=== PATIENT | female | born 1960 | race American Indian/Alaskan Native ===

== ENCOUNTER 2017-02-04 09:14 | Day surgery (SDC) | payer BC ==
[~2017-02-04 09:14] MED LIST: ANCEF/STERILE WATER 2 GM/20 ML IV NR
[2017-02-04] MEDS ORDERED: ZOFRAN IV PRN (09:40)
[2017-02-04] MEDS ORDERED: SUBLIMAZE IV PRN (09:40)
--- NOTE | 2017-02-04 09:41 | Anesthesia Day of Surgery ---
Anesthesia Day of Surgery - Day of Surgery Patient is NPO: Yes Beta Blockers: No Cardiac Clearance: No Pulmonary Clearance: No
--- NOTE | 2017-02-04 09:42 | Anesthesia Consultation ---
Anesthesia Consult and Med Hx Date of service: 02/04/17 - Airway Anesthetic Teeth Evaluation: Dentures ROM Head & Neck: Adequate Mental/Hyoid Distance: Adequate Mallampati Class: Class II Intubation Access Assessment: Probably Good - Pulmonary Exam CTA: Yes (clear blbs no wheeze) - Cardiac Exam Cardiac Exam: RRR - Pre-Operative Health Status ASA Pre-Surgery Classification: ASA3 Proposed Anesthetic Plan: General - Pulmonary Hx Smoking: No Hx Asthma: Yes (RARE INHALER USE/never hospitalized/no ER visits/no recent URI) Hx Sleep Apnea: No (NAT PRE SCREEN HIGH RISK) - Cardiovascular System Hx Hypertension: Yes (X 10 YRS- ON MEDS) - Central Nervous System Hx Back Pain: Yes (??kidney stone) - Gastrointestinal Hx Gastroesophageal Reflux Disease: Yes (only after meals/not when NPO) - Endocrine Hx Renal Disease: Yes (kidney stone) Hx Hypothyroidism: Yes (ON MEDS) - Other Systems Hx Cancer: No Hx Obesity: Yes
[2017-02-04] MEDS ORDERED: DIPRIVAN 10 MG/ML IV ONE (09:52)
[2017-02-04] MEDS ORDERED: XYLOCAINE MPF 2% ONE (09:54)
[2017-02-04] MEDS ORDERED: VERSED IV NR (10:00)
[2017-02-04] MEDS ORDERED: DECADRON ONE (10:00)
[2017-02-04] MEDS ORDERED: NACL 0.9% 1000 ML 1,000 ML IV SCH (10:00)
[2017-02-04] MEDS ORDERED: PEPCID PO NR (10:00)
[2017-02-04] MEDS ORDERED: OMNIPAQUE (300 MG) IR ONE (10:58)
[2017-02-04] MEDS ORDERED: ZOFRAN ONE (11:08)
--- NOTE | 2017-02-04 11:27 | Short Stay Summary ---
Short Stay Documentation Date of service: 02/04/17 - History H&P: obtained from office - Allergies and Medications Current Medications: Allergies No Known Allergies Allergy (Verified 02/01/17 11:36) Home Medications Medication Instructions Recorded Confirmed Last Taken Type ALBUTEROL Inhaler [Proair] 2 puff IH QID PRN 02/01/17 02/04/17 2 Months Ago History Hydrochlorothiazide [HCTZ] 25 mg PO QDAY 02/01/17 02/04/17 02/03/17 History Levothyroxine [Synthroid] 100 mcg PO QAM 02/01/17 02/01/17 02/04/17 08:10 History Lisinopril [Zestril] 20 mg PO QDAY 02/01/17 02/01/17 02/04/17 08:10 History oxyCODONE /ACETAMINOPHEN [Percocet 1 tab PO PRN PRN 02/01/17 02/01/17 Unknown History 5/325 mg] Latanoprost [Latanoprost] 1 drop OU HS 02/04/17 02/04/17 02/03/17 History Active Medications Cefazolin Sodium (Ancef/Sterile Water 2 Gm/20 Ml) 2 gm IV PREOP NR Stop: 02/04/17 23:59 Famotidine (Pepcid) 20 mg PO PREOP NR Stop: 02/04/17 23:59 Last Admin: 02/04/17 10:00 Dose: 20 mg Fentanyl (Sublimaze) 50 mcg IV Q5MIN PRN PRN Reason: Pain , Severe (7-10) Stop: 02/04/17 23:59 Hydromorphone HCl (Dilaudid) 0.25 mg IV Q5MIN PRN PRN Reason: Pain, Moderate (4-6) Stop: 02/04/17 23:59 Sodium Chloride (Nacl 0.9% 1000 Ml) 1,000 mls @ 100 mls/hr IV DIRECT JOE Stop: 02/04/17 23:59 Last Admin: 02/04/17 10:10 Dose: 100 mls/hr Midazolam HCl (Versed) 2 mg IV PREOP NR Stop: 02/04/17 23:59 Last Admin: 02/04/17 10:15 Dose: 2 mg Ondansetron HCl (Zofran) 4 mg IV ONCE PRN PRN Reason: Nausea And Vomiting Stop: 02/04/17 23:59 - Brief post op/procedure progress note Date of procedure: 02/04/17 Pre-op diagnosis: left distal ureteral stone Post-op diagnosis: other (passed stone, stricture) Procedure: cysto, rpg,ureteral dilation, left ureteroscopy, stent with external string Anesthesia: ALLY Surgeon: ELISA HOOD Estimated blood loss: none Pathology: none Condition: stable - Hospital course Hospital course: enmanuel & jennifer on chart - Disposition Condition at discharge: Stable Short Stay Discharge Plan Follow up with: MATTHIAS GUERRERO MD [Primary Care Provider] - 7 Days
[2017-02-04] MEDS: DILAUDID IV PRN ×2 (11:41→11:46)
[2017-02-04 12:24] VITALS: BP 143/69
[2017-02-04] MEDS ORDERED: NORCO 5/325 PO PRN (12:37)
--- NOTE | 2017-02-04 12:53 | Operative Report ---
PREOPERATIVE DIAGNOSIS: Left distal stone. POSTOPERATIVE DIAGNOSES: Left distal stone, passed the stone, left distal ureteral stricture. PROCEDURE: Cystoscopy, bilateral retrograde pyelograms, dilation of left ureter, left flexible ureterorenoscopy, double-J stent (6 Turkmen 24 cm with an external string). SURGEON: Jensen Alvarado MD ANESTHESIA: General. ESTIMATED BLOOD LOSS: Minimal. FLUIDS: Crystalloid. COMPLICATIONS: No complications. INDICATIONS: This patient is a 56-year-old female actually seen a year ago in the office for stones who lost to followup. CT at that time revealed 2 mm bilateral stones. Now, she presents with worsening pain. She does do lifting at work. KUB in the office showed distal calcification. Based on these findings, we agreed to proceed with surgical intervention. DESCRIPTION OF PROCEDURE: The patient was taken to the operative suite, placed in a supine position. After adequate general anesthesia, she was placed in a dorsal lithotomy position, prepped and draped in a sterile fashion. She was noted to have a moderate cystocele. Pancystourethroscopy was performed with a 22 Turkmen Storz cystoscope, no acute bladder pathology. No tumors or stones were noted. Mild amount of erythema around the left ureteral orifice. The cystocele was reduced with in the vaginal vault. Bilateral retrograde pyelograms were obtained with an 8 Turkmen Ulises catheter and 8 mL of contrast. No filling defects or obstruction on the right. Left side, still questionable stone in the distal ureter. Two 0.035 guidewires were placed in the right and left collecting system under fluoroscopic guidance. Attempts at ureteroscopy was unsuccessful due to stenosis. A 20-Turkmen access sheath was inserted and gentle dilation was performed. Ureterorenoscopy was performed. No stone could be appreciated. The stenosis was now dilated. She may have passed a stone. A 6-Turkmen 24 cm double-J stent was left indwelling. Bladder was drained. She was extubated and taken to recovery room. She will go home on Cipro and Cisne and follow up in the office. Primary care is Dr. Win Carmona, medical technologist microbiology is Dr. Larry Wiseman. JOB# [id number] [facility]
--- NOTE | 2017-02-04 13:28 | Post Anesthesia Evaluation ---
- Post Anesthesia Evaluation Patient Participated: Yes Airway Patent: Yes Stable Respiratory Function: Yes Temp > 96.8F: Yes Pain Manageable: Yes Adequeate Hydration: Yes Anesthesia Complications: No Block Receding Appropriately: Not Applicable
--- NOTE | 2017-02-05 02:50 | Admit Criteria Form ---
Admission Criteria Documentation: AMBULATORY SURGERY EXCEPTION CRITERIA Ambulatory Surgery Exception Criteria ( Place 'X' for any and all applicable criteria): Surgery or procedure performed on ambulatory basis may require inpatient stay for[A] ANY ONE of the following(1)(2)(3)(4)(5)(6)(7)(8)(9): [X] I. A preoperative situation, condition, or finding that warrants inpatient stay as indicated by ANY ONE of the following: [] a) Inpatient care needed because of severity of a disease or condition rather than the surgery (eg, severe cardiac or respiratory disease, severe infection) (15) (16 ) (17) (18) [] b) Emergent procedure (eg, angioplasty for acute ischemia)(19) [] c) Complex surgical approach or situation as indicated by ANY ONE of the following(3): [] i) Open approach needed instead of usual endoscopic, transcatheter, or other less invasive procedure [] ii) Difficult approach because of previous operation [] iii) Airway monitoring required after open neck procedures(20)(21) [] iv) Large mass requiring unusually extensive dissection [] v) Additional complicating feature requiring inpatient care (eg, drain management)(22(23): [X] d) Major surgery in a pt with high anesthetic risk as indicated by ANY ONE of the following (2)(3)(5)(7)(8): [X] i) ASA risk class III or higher (severe systemic disease impairing function) [D] [] ii) Advanced age (eg, older than 85 years)(14)(24) [] iii) Symptomatic heart failure(25) [] iv) Symptomatic asthma or COPD(8)(21) [] v) Morbid obesity with hemodynamic or respiratory problems(20)( 21)(26)(27) [] vi) Obstructive sleep apnea(20)(21) [] vii) Former premature infants who are younger than 60 weeks [] viii) High risk for severe postoperative abnormalities (eg, severe postoperative hypocalcemia after parathyroidectomy for severe hyperparathyroidism)(27)( 28) [] ix) Unstable angina(25) [] e) Drug-related risk requiring inpatient stay as indicated by ANY ONE of the following(5)(10)(14)(32)(33) [] i) Procedure requires discontinuing drugs or other therapy (eg , antiarrhythmic medication, antiseizure medication), which necessitates inpatient observation or treatment.(18)(31) [] ii) Major surgery and high risk drug use as indicated by ANY ONE of the following: [] 1) Active abuse of cocaine or similar drug [] 2) Monoamine oxidase inhibitor use [] 3) Other drug identified as posing risk [] f) Inadequate outpatient care situation as indicated by ANY ONE of the following(5)(10)(14)(32)(33) [] i) Patient lives remote from medical facility and procedure has urgent complication potential, and temporary nearby residence cannot be arranged [] ii) Patient will have postprocedure incapacitation and inadequate assistance at home, or alternative level of care cannot be arranged. [] iii) Patient will have long general anesthesia or procedure side effect resolution time, and competent person to stay with patient on first postoperative night at home or alternative level of care cannot be arranged. []iv) Other inadequate outpatient situation that cannot be handled by other means [] II. A perioperative event, condition, or finding that warrants inpatient stay as indicated by ANY ONE of the following (1)(2)(3): [] a) Inadequate physiologic recovery: cardiovascular, respiratory, or hemodynamic status not normal or near preoperative baseline(18) [] b) Hemodynamic instability [] c) Patient not alert with near normal or baseline mental status [] d) Temperature not normal or as expected and not appropriate for outpatient treatment of condition [] e) Ambulatory or appropriate activity level status not yet achieved post procedure [E](34)(35)(36) [] f) Operative site not appropriate (eg, unexpected or excessive drainage or bleeding) [] g) Postoperative effects not resolved or adequately managed (eg, significant pain or vomiting not appropriate for outpatient or next level of care)(10)(12) [] h) Complicating features requiring inpatient care as indicated by ANY ONE of the following(37): [] i) Severe complications of procedure (eg, bowel injury, airway compromise, vascular injury,severe hemorrhage) [] ii) Extensive (eg, dissection far beyond usual scope of procedure ) or prolonged (eg, 120 minutes beyond usual) surgery needed requiring inpatient postoperative care [] iii) Conversion to an open or complex procedure that requires inpatient care (eg, open vs laparoscopic cholecystectomy, abdominal vs vaginal hysterectomy)(38) [] iv) Comorbid condition or test result identified during or post procedure that requires inpatient care (7) [] v) Malignant hyperthermia(30) [] vi) Other complicating feature requiring inpatient care(22)(23) Inpatient stay may be needed until ALL of the following are present (1)(2)(3)(4) (5)(6)(10)(14)(33)(40): []a) Physiologic recovery: cardiovascular, respiratory, and hemodynamic status normal or near preoperative baseline []b) Hemodynamic stability []c) Patient alert, with near normal or baseline mental status []d) Temperature appropriate: patient afebrile or temperature appropriate for outpt treatment of condition []e) Activity level appropriate: ambulatory or appropriate activity level post procedure []f) Operative site appropriate as indicated by ALL of the following: []i) Site dry or with expected drainage []ii) Any blood noted is as expected for procedure. []g) Postoperative effects resolved or managed as indicated by ALL of the following: []i) Pain management appropriate for outpatient (or next level of) care(10) []ii) Minimal nausea and vomiting: if present, successfully treated with oral medication(12) []iii) Headache, dizziness, or drowsiness (if present) are mild. []h) Voiding status acceptable as indicated by ANY ONE of the following: []i) Voiding spontaneously []ii) No voiding but instructions given for follow-up in 6 to 8 hours []iii) Urinary catheter in place, and instructions given for follow-up []i) Complicating features requiring inpatient care manageable at a lower level of care(37) []j) Comorbid conditions manageable at a lower level of care(37) The original [employer] content created by [employer] has been revised. The portions of the content which have been revised are identified through the use of italic text or in bold, and [facility] [employer] has neither reviewed nor approved the modified material. All other unmodified content is copyright [employer]. Please see references footnoted in the original [employer] edition 2016 Admission Criteria Met: Yes
--- NOTE | 2017-02-05 09:12 | Fluoroscopy Report ---
RETROGRADE PYELOGRAM: History: Left ureteral stone. There is adequate filling of the ureters and intrarenal collecting systems with no filling defects or anatomic abnormalities identified. Left ureteroscopy was also performed. A left ureteral stent was placed which is in good position on the final image. Please correlate with the procedural report by Dr. Alvarado.
== END 2017-02-04 12:50 | disposition home or self-care (01) ==
LOC: OR 09:14
PROVIDERS: ATTEND Urology
DX: N20.1 Calculus of ureter (principal); N13.5 Crossing vessel and stricture of ureter without hydronephrosis; N81.10 Cystocele, unspecified; I10 Essential (primary) hypertension; J45.909 Unspecified asthma, uncomplicated; K21.9 Gastro-esophageal reflux disease without esophagitis; E03.9 Hypothyroidism, unspecified; E66.9 Obesity, unspecified; Z68.38 Body mass index [BMI] 38.0-38.9, adult; Z90.49 Acquired absence of other specified parts of digestive tract; Z90.710 Acquired absence of both cervix and uterus; Z98.890 Other specified postprocedural states; Z79.899 Other long term (current) drug therapy; Z82.49 Family history of ischemic heart disease and other diseases of the circulatory system; Z80.3 Family history of malignant neoplasm of breast; Z82.3 Family history of stroke; Z83.3 Family history of diabetes mellitus
CPT/HCPCS: 36415; 52332; 52341; 74420; 84132; C1769; C2617; J0690; J1100; J1170; J2250; J2405; J2704; J3010; J7030; Q9967

== ENCOUNTER 2020-10-26 09:38 | Outpatient (CLI) | payer BC | END 2020-10-26 09:39 | disposition home or self-care (01) | LOC: SPVWC 09:38 | PROVIDERS: ATTEND Surgery | DX: Z12.31 Encounter for screening mammogram for malignant neoplasm of breast (principal) | CPT/HCPCS: 77067 ==

== ENCOUNTER 2020-11-08 09:47 | Outpatient (CLI) | payer BC ==
--- NOTE | 2020-11-08 10:27 | Mammography Report ---
DIGITAL DIAGNOSTIC MAMMOGRAM WITH CAD , 11/08/2020 CLINICAL INFORMATION / INDICATION: ABNORMAL MAMMO TECHNIQUE: Digital right mammographic imaging was performed. Magnification views were obtained. This examination was interpreted with the benefit of Computer-aided Detection analysis. COMPARISON: 10/26/2020 FINDINGS: Breast Density: The breasts are heterogeneously dense, which may obscure small masses. There are grouped calcifications in the right breast at 9:00, middle depth, spanning a distance of 1 5 mm. Calcifications are heterogeneous in appearance, and will require further evaluation with biopsy . Calcifications are amenable to stereotactic guided biopsy if clinically desired. IMPRESSION: Heterogeneous grouped calcifications right breast, 9:00. Recommend stereotactic biopsy. Follow up recommendation: Biopsy BI-RADS Category 4: Suspicious for Malignancy. A "normal" or negative report should not discourage follow up or biopsy of a clinically significant f inding. A written summary of these findings will be mailed to the patient. The patient will be entered into a mammography reporting system which will generate a reminder letter for the patient's next appointmen t at the appropriate interval. According to the [employer], yearly mammograms are recommended starting at age 40 and continuing as long as a woman is in good health. Breast MRI is recommended for women with an alexandra roximately 20-25% or greater lifetime risk of breast cancer, including women with a strong family his tory of breast or ovarian cancer and women who have been treated for Hodgkin's disease. Signer Name: Alba Rush MD Signed: 11/08/2020 10:22 AM Workstation Name: [email or web address]
== END 2020-11-08 09:48 | disposition home or self-care (01) ==
LOC: SPVWC 09:47
PROVIDERS: ATTEND Surgery
DX: R92.1 Mammographic calcification found on diagnostic imaging of breast (principal)

== ENCOUNTER 2020-11-23 12:00 | Outpatient (CLI) | payer BC ==
--- NOTE | 2020-11-23 14:38 | Mammography Report ---
RIGHT DIAGNOSTIC MAMMOGRAM INDICATION: Right lateral breast calcifications. COMPARISON: 11/08/2020, 10/26/2020. FINDINGS: Right breast CC and ML projection mammograms were obtained. These document accurate locatio n of a biopsy marker status post stereotactic biopsy of right breast calcifications at the 9:00 posit ion. IMPRESSION: Technically successful stereotactic biopsy of right breast calcifications at the 9:00 position with a ccurate biopsy marker placement. BI-RADS Category 4: Suspicious for Malignancy. Signer Name: Mark Preciado MD Signed: 11/23/2020 2:33 PM Workstation Name: [id number]
--- NOTE | 2020-11-23 14:51 | Mammography Report ---
PERCUTANEOUS STEREOTACTIC-GUIDED RIGHT BREAST BIOPSY WITH MARKER PLACEMENT HISTORY: Right breast calcifications. CONSENT: Technique, risks and alternatives were discussed with the patient and informed written conse nt obtained. PROCEDURE: The patient was placed in the prone position on the Siemens biopsy table. The calcifications within t he right breast at the 9:00 position were targeted mammographically. Medical Anthropology Director and stereo pair images wer e acquired to generate the computer-derived coordinates for targeting. The skin overlying the chosen biopsy site were cleansed with Betadine. The skin and superficial soft tissues were anesthetized wit h a small amount of buffered 1% lidocaine. The deeper soft tissues were anesthetized with buffered 1 % lidocaine with epinephrine. A small dermatotomy was created through which the [facility] biopsy device was placed. Pre and post fire st ereo pair images were acquired to confirm appropriate needle trajectory. Using vacuum assistance, mul tiple core specimen samples were acquired. A post procedure specimen radiograph confirmed calcificati ons. Additional samples were obtained and more calcifications were identified. A biopsy marker was d eposited at the biopsy site, and appropriate biopsy marker deposition confirmed via a stereo pair tiffany ge. Manual pressure was applied at the biopsy site to achieve hemostasis. The incision margins were appro ximated with Steri-Strips. Postprocedure care instructions were administered in both verbal and writt en forms. The patient voiced understanding and departed the [facility] in stable, satisfactory con dition. IMPRESSION Technically successful stereotactic biopsy of calcifications within the right breast at the 9:00 posi tion with accurate placement of a biopsy marker. An addendum will be added to this report once pathology results are available. Signer Name: Mark Preciado MD Signed: 11/23/2020 2:46 PM Workstation Name: [id number]
== END 2020-11-23 12:01 | disposition home or self-care (01) ==
LOC: SPVWC 12:00
PROVIDERS: ATTEND Surgery
DX: R92.1 Mammographic calcification found on diagnostic imaging of breast (principal); D05.11 Intraductal carcinoma in situ of right breast; Z17.0 Estrogen receptor positive status [ER+]; H40.9 Unspecified glaucoma; E78.00 Pure hypercholesterolemia, unspecified; J45.909 Unspecified asthma, uncomplicated; I10 Essential (primary) hypertension; K21.9 Gastro-esophageal reflux disease without esophagitis; E66.9 Obesity, unspecified; E03.9 Hypothyroidism, unspecified; Z98.890 Other specified postprocedural states; Z79.899 Other long term (current) drug therapy; Z90.49 Acquired absence of other specified parts of digestive tract; Z90.710 Acquired absence of both cervix and uterus; Z87.442 Personal history of urinary calculi
CPT/HCPCS: 19081; 77065; 88305; A4648

== ENCOUNTER 2020-12-22 12:43 | Outpatient (CLI) | payer BC ==
--- NOTE | 2020-12-22 15:43 | Mammography Report ---
DEXA BONE DENSITY SCAN INDICATION: OSTEOPOROSIS SCREENING. COMPARISON: None available. LUMBAR SPINE (L1-L4): Bone mineral density (BMD) is 1.063 g/cm2. T-score is -0.8 (standard deviations of Young Adult mean). Z-score is 1 (standard deviations of Age Matched mean). LEFT FEMORAL NECK: Bone mineral density (BMD) is 0.868 g/cm2. T-score is -0.6 (standard deviations of Young Adult mean). Z-score is 0.6 (standard deviations of Age Matched mean). IMPRESSION: 1. WHO Classification: Normal bone density. Fracture Risk: Not Increased. Signer Name: Abdullahi Colorado MD Signed: 12/22/2020 3:38 PM Workstation Name: [id number]
== END 2020-12-22 12:44 | disposition home or self-care (01) ==
LOC: SPVWC 12:43
PROVIDERS: ATTEND Internal Medicine Hematology & Oncology
DX: Z13.820 Encounter for screening for osteoporosis (principal); E66.9 Obesity, unspecified; D05.11 Intraductal carcinoma in situ of right breast
CPT/HCPCS: 77080

== ENCOUNTER 2021-01-13 06:33 | Day surgery (SDC) | payer BC ==
[2021-01-09 10:17] LABS: Hematocrit 36.9 % (30.3-42.9); Hemoglobin 11.9 gm/dl (10.1-14.3); Mean Corpuscular HGB Conc 32 % (30-34); Mean Corpuscular Volume 79 fl (79-97); Platelet Count 265 K/mm3 (140-440); Red Cell Distribution Width 14.6 % (13.2-15.2)
[2021-01-09 10:39] LABS: Blood Urea Nitrogen 12 mg/dL (7-17); Calcium 9.6 mg/dL (8.4-10.2); Hemolysis Index 0
[2021-01-09 10:45] LABS: BUN/Creatinine Ratio 17
[~2021-01-13 06:33] MED LIST changes: +ACETAMINOPHEN 500 MG TAB PO SCH; -ANCEF/STERILE WATER 2 GM/20 ML IV NR; +CELECOXIB 200 MG CAP PO NR; +GABAPENTIN 300 MG CAP PO NR; +LACTATED RINGERS 1,000 ML IV SCH; +MIDAZOLAM 2 MG/2 ML INJ IV NR; +ceFAZolin/Water 2 GM/20 ML 2 GM/20 ML SYRINGE IV NR; +fentaNYL 100 MCG/2 ML INJ IV PRN
[2021-01-13] MEDS ORDERED: dexAMETHasone 4 MG/ML VIAL ONE (07:29)
[2021-01-13] MEDS ORDERED: BUPIVACAINE-EPINEPHRINE/PF 0.5%-1:200,000 (30 ML) VIAL INFILTRATI ONE (07:30)
[2021-01-13] MEDS ORDERED: LIDOCAINE (1%) 10 MG/1 ML VIAL 20 ML MDV ONE (07:37)
[2021-01-13] MEDS ORDERED: ONDANSETRON 4 MG/2 ML INJ IV PRN (09:04)
[2021-01-13] MEDS ORDERED: fentaNYL 100 MCG/2 ML INJ IV PRN (09:04)
[2021-01-13] MEDS ORDERED: HYDROcodone/ACETAMINOPHEN 5-325 MG TAB PO PRN (09:04)
--- NOTE | 2021-01-13 09:04 | Anesthesia Day of Surgery ---
Anesthesia Day of Surgery - Day of Surgery Patient Examined: Yes Patient H&P Reviewed: Yes Patient is NPO: Yes
--- NOTE | 2021-01-13 09:04 | Anesthesia Consultation ---
Anesthesia Consult and Med Hx Date of service: 01/13/21 - Airway Anesthetic Teeth Evaluation: Poor, Partials ROM Head & Neck: Adequate Mental/Hyoid Distance: Adequate Mallampati Class: Class I Intubation Access Assessment: Good - Pre-Operative Health Status ASA Pre-Surgery Classification: ASA3 Proposed Anesthetic Plan: General Nerve Block: PECS II - Pulmonary Hx Smoking: No Hx Asthma: Yes (albuterol use 1x/wk) Hx Respiratory Symptoms: No Hx Sleep Apnea: No (compliant with CPAP) - Cardiovascular System Hx Hypertension: Yes Hx Heart Attack/AMI: No Hx Percutaneous Transluminal Coronary Angioplasty (PTCA): No - Central Nervous System CVA: No - Gastrointestinal Hx Gastroesophageal Reflux Disease: Yes (diet controlled, asymptomatic today) - Endocrine Hx Renal Disease: No Hx Liver Disease: No Hx Insulin Dependent Diabetes: No Hx Non-Insulin Dependent Diabetes: No Hx Hypothyroidism: Yes (took synthroid this morning) - Other Systems Hx Cancer: Yes (breast ca not yet on chemotherapy) Hx Obesity: Yes (BMI 39) - Additional Comments Anesthesia Medical History Comments: No hx anesthetic complications.
[2021-01-13] MEDS ORDERED: LIDOCAINE MPF (2%) 20 MG/1 ML VIAL 5 ML ONE (09:30)
[2021-01-13] MEDS ORDERED: propofoL 200 MG/20 ML VIAL IV ONE (09:30)
[2021-01-13] MEDS ORDERED: HYDROmorphone 1 MG/1 ML INJ ONE (09:30)
[2021-01-13] MEDS ORDERED: BACITRACIN ZINC OINT 28.4 GM TP ONE ×2 (10:14→10:39)
[2021-01-13] MEDS ORDERED: ONDANSETRON 4 MG/2 ML INJ ONE (10:59)
--- NOTE | 2021-01-13 11:10 | Short Stay Summary ---
Short Stay Documentation Date of service: 01/13/21 - History H&P: obtained from office - Allergies and Medications Current Medications: Allergies lisinopril Adverse Reaction (Verified 01/13/21 10:02) COUGHING Home Medications Medication Instructions Recorded Confirmed Last Taken Type Albuterol Mdi (or & Nicu Only) 2 puff IH QID PRN 02/01/17 01/13/21 12/30/20 08:00 History [Proair] Levothyroxine [Synthroid] 100 mcg PO QAM 02/01/17 01/13/21 01/13/21 06:00 History hydroCHLOROthiazide [HCTZ] 25 mg PO QDAY 02/01/17 01/13/21 01/12/21 08:00 History oxyCODONE /ACETAMINOPHEN [Percocet 1 tab PO PRN PRN 02/01/17 01/13/21 11/21/20 08:00 History 5/325 mg] Latanoprost 1 drop OU HS 02/04/17 01/13/21 12/16/20 21:00 History metFORMIN [Glucophage] 250 mg PO QDAY 01/09/21 01/13/21 01/06/21 08:00 History RX: Ibuprofen [Motrin 800 MG tab] 800 mg PO Q8HR PRN #12 tablet 01/13/21 Unknown Rx Active Medications Acetaminophen (Acetaminophen 500 Mg Tab) 1,000 mg PO PREOP JOE Last Admin: 01/13/21 08:10 Dose: 1,000 mg Documented by: Hydrocodone Bitart/Acetaminophen (Hydrocodone/Acetaminophen 5-325 Mg Tab) 2 each PO ONCE PRN PRN Reason: Pain, Moderate (4-6) Celecoxib (Celecoxib 200 Mg Cap) 200 mg PO PREOP NR Stop: 01/13/21 23:01 Last Admin: 01/13/21 08:10 Dose: 200 mg Documented by: Fentanyl (Fentanyl 100 Mcg/2 Ml Inj) 100 mcg IV ONCE PRN PRN Reason: sedation for nerve block Last Admin: 01/13/21 08:47 Dose: 100 mcg Documented by: Fentanyl (Fentanyl 100 Mcg/2 Ml Inj) 50 mcg IV Q5MIN PRN PRN Reason: Pain , Severe (7-10) Gabapentin (Gabapentin 300 Mg Cap) 300 mg PO PREOP NR Stop: 01/13/21 23:01 Last Admin: 01/13/21 08:10 Dose: 300 mg Documented by: Cefazolin Sodium (Ancef/Sterile Water 2 Gm/20 Ml) 2 gm in 20 mls @ 80 mls/hr IV PREOP NR; Protocol Stop: 01/13/21 23:00 Lactated Ringer's (Lactated Ringers) 1,000 mls @ 100 mls/hr IV DIRECT JOE Stop: 01/13/21 23:59 Last Admin: 01/13/21 08:20 Dose: 100 mls/hr Documented by: Midazolam HCl (Midazolam 2 Mg/2 Ml Inj) 2 mg IV PREOP NR Stop: 01/13/21 23:00 Last Admin: 01/13/21 08:46 Dose: 2 mg Documented by: Ondansetron HCl (Ondansetron 4 Mg/2 Ml Inj) 4 mg IV ONCE PRN PRN Reason: Nausea And Vomiting - Brief post op/procedure progress note Date of procedure: 01/13/21 Pre-op diagnosis: Right breast cancer upper outer quadrant Post-op diagnosis: same Procedure: Right needle localization partial mastectomy of the upper outer quadrant Anesthesia: GETA Findings: Right wire and clip present Surgeon: KEYANA TONEY Estimated blood loss: minimal Pathology: list (right partial mastectomy) Specimen disposition: to lab Condition: stable - Disposition Condition at discharge: Good Disposition: DC-01 TO HOME OR SELFCARE Short Stay Discharge Plan Activity: other (no heavy lifting) Diet: regular Wound: keep clean and dry (may shower in 48 hours; no baths; wear breast binder) Follow up with: KEYANA TONEY MD [Staff Physician] - 7 Days Prescriptions: RX: Ibuprofen [Motrin 800 MG tab] 800 mg PO Q8HR PRN #12 tablet PRN Reason: Pain , Severe (7-10)
--- NOTE | 2021-01-13 11:12 | Operative Report ---
Operative Report Operative Report: Operative Report: January 13, 2021 Preoperative diagnosis: Right breast cancer of the upper outer quadrant Postoperative diagnosis: Same Procedure: Right needle localization partial mastectomy of the upper outer quadrant Surgeon: Romina Dodson MD Social Media Developer: Zoey Mcpherson MD Anesthesia: General Findings: Right wire and clip present within radiograph specimen Complications: None EBL: Minimal, less than 25 cc Disposition: PACU in good condition Indications for operative procedure: This is a 60 year old lady with newly diagnosed right breast cancer of the upper outer quadrant, Stage 0, [id number] ER positive. Recommendations are to proceed with breast conservation. Radiologist place wire at area of cancer of DCIS at location of clip. She understands the role of adjuvant radiation therapy. She wished to proceed with the above procedure. Procedure in detail: The patient was taken to radiology for wire placement for localization known area of cancer. Anesthesia placed right pectoral block. Patient was then taken to the operating room. Gen. anesthesia was administered. Right breast and axilla were prepped and draped in the normal sterile operative fashion. The wire was identified. Timeout was performed. Attention was then taken towards the right breast. A periareolar breast incision around 9:00 position was made with a 15 blade knife and dissection taken down to subcutaneous tissues. First began raising of the lateral flap with removal of the wire from the skin with dissection taken down to the pectoralis muscle and past the wire, followed by raising of the medial flap, superior flap and inferior flap with all flaps taken down past the wire and posteriorly to the pectoralis muscle. The breast area of concern was appropriately removed posteriorly from the muscle with the aid of the Bovie cautery. The wire was not encountered. Specimen was marked and then sent to pathology and radiology; radiograph specimen with wire and clip present. Breast cavity was irrigated and hemostasis was obtained. Then proceeded with complex closure. The posterior deep breast tissues were approximated and closed using interrupted 3-0 Vicryl. The subcutaneous tissues were approximated and closed using interrupted 3-0 Vicryl followed by closing of the skin with a running 4-0 Monocryl and skin affix. The patient tolerated surgery very well and she was awaken from anesthesia without any complication and transported to PACU in good condition.
[2021-01-13 13:08] VITALS: BP 160/75
--- NOTE | 2021-01-13 15:47 | Post Anesthesia Evaluation ---
- Post Anesthesia Evaluation Patient Participated: Yes Airway Patent: Yes Stable Respiratory Function: Yes Nausea/Vomiting: No Temp > 96.8F: Yes Pain Manageable: Yes Adequeate Hydration: Yes Anesthesia Complications: No
--- NOTE | 2021-01-13 15:55 | Mammography Report ---
MAMMOGRAPHY GUIDED WIRE LOCALIZATION OF THE RIGHT BREAST RIGHT BREAST SPECIMEN RADIOGRAPH, 01/13/2021 INDICATION: Localization of right breast target lesion: . COMPARISON: 11/23/2020 TECHNIQUE / FINDINGS: MAMMOGRAPHY GUIDED LOCALIZATION: Preliminary mammography of the breast demonstrated no significant in terval change compared to prior imaging. The anticipated needle entry site was marked, prepped and d raped in the usual sterile fashion. A timeout was performed confirming the patients name, date of bir th and the procedure to be performed. The skin was anesthetized with 1% lidocaine. A 20 gauge localiz ation needle was inserted through the target lesion. A localization wire was then deployed through t he needle, and the needle was removed. Appropriate positioning of the wire was confirmed. The patien t tolerated the procedure well without immediate complication. The wire was secured to the skin with a sterile dressing. SPECIMEN RADIOGRAPH: The previously localized target lesion is present in its entirety in the submitt ed specimen. The localization wire is present. IMPRESSION: 1. Technically successful mammography guided breast wire localization. 2. Radiographic evidence of satisfactory excision of the target lesion. Signer Name: Andrea Elaine Jr, MD Signed: 01/13/2021 3:51 PM Workstation Name: [id number]
== END 2021-01-13 13:00 | disposition home or self-care (01) ==
LOC: OR 06:33
PROVIDERS: ATTEND Surgery
DX: C50.411 Malignant neoplasm of upper-outer quadrant of right female breast (principal); Z20.822 Contact with and (suspected) exposure to COVID-19; H40.9 Unspecified glaucoma; E78.00 Pure hypercholesterolemia, unspecified; I10 Essential (primary) hypertension; J45.909 Unspecified asthma, uncomplicated; K21.9 Gastro-esophageal reflux disease without esophagitis; M19.90 Unspecified osteoarthritis, unspecified site; E03.9 Hypothyroidism, unspecified; Z80.8 Family history of malignant neoplasm of other organs or systems; Z98.890 Other specified postprocedural states; Z88.8 Allergy status to other drugs, medicaments and biological substances; Z79.899 Other long term (current) drug therapy; Z79.84 Long term (current) use of oral hypoglycemic drugs; Z90.710 Acquired absence of both cervix and uterus; Z87.442 Personal history of urinary calculi; Z80.2 Family history of malignant neoplasm of other respiratory and intrathoracic organs
CPT/HCPCS: 19281; 19301; 36415; 76098; 80048; 82962; 85027; 88307; 88341; 88342; A4648; J0690; J1100; J1170; J2250; J2405; J2704; J3010; J7120; U0003; 64450